=== PATIENT | female | born 2000 | race Caucasian/White ===

== ENCOUNTER 2024-06-07 12:24 | Emergency (ER) | payer BC, OTHER ==
[2024-06-07 12:36] VITALS: TEMP 98.8
--- NOTE | 2024-06-07 13:23 | ED ---
Chest Pain HPI - General Chief Complaint: Chest Pain Stated Complaint: Chest pain Time Seen by Provider: 06/07/24 13:23 Source: patient, family (mother), RN notes reviewed Mode of arrival: ambulatory Limitations: no limitations - History of Present Illness Initial Comments: 23 year old female presenting to the ER for evaluation of chest discomfort and a lcohol withdrawal. Patient reports for the past 4 to 5 years he has been drinking approximately half a pint a day. He admits to tremors and mild agitation with withdrawal. Denies known seizure from withdrawal. Patient does admit to hallucinations daily. Patient admits for the past 24 hours he has been experiencing a tight/squeezing sensation to the centralized chest area. Patient admits to shortness of breath and dizziness as well. Patient denies known cardiac history, history of blood clots, blood thinner use, or control use. Patient does smoke marijuana. Patient reports he would like help with alcohol use. Patient admits to a history of suicidal ideations with plan. Plan was to take pills and alcohol. Last thought was a couple of weeks ago per patient. No current thoughts. No homicidal ideations. - Related Data Previous Rx's Medication Instructions Recorded diazePAM [Valium] 5 mg PO BID #6 tab 06/07/24 Allergies Allergy/AdvReac Type Severity Reaction Status Date / Time pet dander Allergy Unknown Uncoded 06/07/24 12:26 Review of Systems ROS Statement: Those systems with pertinent positive or pertinent negative responses have been documented in the HPI. ROS Other: All systems not noted in ROS Statement are negative. EKG Findings - EKG Comments: EKG Findings:: EKG taken at 12: 44 showing a sinus rhythm with sinus arrhythmia. Inverted T waves in lead III. No ST segment changes. Ventricular rate 73, [place] interval 133, QRS duration 93, QT/QTc 375/400. Past Medical History Past Medical History: Asthma, GERD/Reflux Additional Past Medical History / Comment(s): vitiligo. stopped taking testosterone at 19 after using for one year History of Any Multi-Drug Resistant Organisms: None Reported Past Surgical History: Breast Surgery Additional Past Surgical History / Comment(s): colonoscopy. EGD. double mastectomy Past Psychological History: Anxiety, Depression Smoking Status: Former smoker Past Alcohol Use History: Abuse, Daily, Heavy Past Drug Use History: Marijuana General Exam Limitations: no limitations General appearance: alert, in no apparent distress Respiratory exam: Present: normal lung sounds bilaterally. Absent: respiratory distress, wheezes, rales, rhonchi, stridor Cardiovascular Exam: Present: regular rate, normal rhythm, normal heart sounds. Absent: systolic murmur, diastolic murmur, rubs, gallop, clicks GI/Abdominal exam: Present: soft, normal bowel sounds. Absent: distended, tenderness, guarding, rebound, rigid Neurological exam: Present: alert, oriented X3, CN II-XII intact Psychiatric exam: Present: flat affect Skin exam: Present: warm, dry, intact, normal color. Absent: rash Course Vital Signs 06/07/24 06/07/24 06/07/24 12:26 15:59 18:23 Temperature 98.8 F Pulse Rate 82 88 84 Respiratory 20 16 16 Rate Blood Pressure 123/91 126/79 124/76 O2 Sat by Pulse 93 L 96 99 Oximetry Chest Pain MDM - MDM Was pt. sent in by a medical professional or institution (, PA, COMPOSITION INSTRUCTOR, urgent care, hospital, or fpc...) When possible be specific @ -No Did you speak to anyone other than the patient for history (EMS, parent, family, police, friend...)? What history was obtained from this source @ -Patient's mother aiding in HPI and past medical history. Did you review nursing and triage notes (agree or disagree)? Why? @ -I reviewed and agree with nursing and triage notes Were old charts reviewed (outside hosp., previous admission, EMS record, old EKG, old radiological studies, urgent care reports/EKG's, fpc records)? Report findings @ -No old charts were reviewed Differential Diagnosis (chest pain, altered mental status, abdominal pain women, abdominal pain men, vaginal bleeding, weakness, fever, dyspnea, syncope, headache, dizziness, GI bleed, back pain, seizure, CVA, palpatations, mental health, musculoskeletal)? @ -Differential Chest Pain:Stable Angina, Unstable Angina, STEMI, NSTEMI Aortic Dissection, Pneumothorax, Musculoskeletal, Esophageal Spasm GERD, Cholecystitis, Pancreatitis, Zoster, this is not meant to be an all-inclusive list. EKG interpreted by me (3pts min.). @ -As above X-rays interpreted by me (1pt min.). @ -CXR negative for acute cardiopulmonary process. CT interpreted by me (1pt min.). @ -None done U/S interpreted by me (1pt. min.). @ -None done What testing was considered but not performed or refused? (CT, X-rays, U/S, labs)? Why? @ -None What meds were considered but not given or refused? Why? @ -None Did you discuss the management of the patient with other professionals (professionals i.e. , PA, COMPOSITION INSTRUCTOR, lab, RT, psych nurse, psychologist social, immigration lawyer, teacher, customs and immigration officer, pillowcase maker)? Give summary @ -Case was discussed with EPSMichelle, who advised on discharge with safety plan in place. Was smoking cessation discussed for >3mins.? @ -No Was critical care preformed (if so, how long)? @ -No Were there social determinants of health that impacted care today? How? (Homelessness, low income, unemployed, alcoholism, drug addiction, transportation, low edu. Level, literacy, decrease access to med. care, detention, rehab)? @ -Alcoholism Was there de-escalation of care discussed even if they declined (Discuss DNR or withdrawal of care, Hospice)? DNR status @ -No What co-morbidities impacted this encounter? (DM, HTN, Smoking, COPD, CAD, Cancer, CVA, ARF, Chemo, Hep., AIDS, mental health diagnosis, sleep apnea, morbid obesity)? @ -Alcoholism, mental health Was patient admitted / discharged? Hospital course, mention meds given and route, prescriptions, significant lab abnormalities, going to OR and other pertinent info. @ -Discharge. 23 year old female presenting to the ER with a chief complaint of chest discomfort. Patient also seeking help for alcohol use. History and physical exam completed. Vitals stable. Patient in no signs of acute distress nontoxic-appearing. Cardiac workup obtained and negative. Troponin undetectable. D-dimer 0.30. Serum alcohol less than 10. Chest x-ray negative. CIWA 6. Patient given IV fluids and thiamine. Patient is cleared for EPS evaluation. Case was discussed with Michelle YUSUF, placed on discharge with safety plan in place. Patient's mother, at bedside, states patient lives with her and can be closely monitored. Patient given resources for [facility] and is scheduled to follow-up with them tomorrow. Valium prescribed. Strict return parameters discussed. Patient discharged in stable condition with follow-up to PCP. Patient verbally expressed understanding and agreement with care plan. Case discussed with ED attending, Dr. Graham. Undiagnosed new problem with uncertain prognosis? @ -No Drug Therapy requiring intensive monitoring for toxicity (Heparin, Nitro, Insulin, Cardizem)? @ -No Were any procedures done? @ -No Diagnosis/symptom? @ -Atypical chest pain/alcohol abuse Acute, or Chronic, or Acute on Chronic? @ -Acute Uncomplicated (without systemic symptoms) or Complicated (systemic symptoms)? @ -Uncomplicated Side effects of treatment? @ -No Exacerbation, Progression, or Severe Exacerbation? @ -No Poses a threat to life or bodily function? How? (Chest pain, USA, DC, pneumonia, PE, COPD, DKA, ARF, appy, cholecystitis, CVA, Diverticulitis, Homicidal, Suicidal, threat to staff... and all critical care pts) @ -Low at this time. Alcohol withdrawal can lead to seizures. Suicidal ideations are life-threatening. Disposition Clinical Impression: Alcohol abuse, Atypical chest pain Disposition: HOME SELF-CARE Condition: Stable Additional Instructions: Follow-up with [facility] as scheduled with EPS. Return to the ER for any new or worsening concerns. Prescriptions: diazePAM [Valium] 5 mg PO BID #6 tab Is patient prescribed a controlled substance at d/c from ED?: No Referrals: Zackary Ta [Primary Care Provider] - 1-2 days Forms: Outpatient Counseling, Outpatient Therapy List Time of Disposition: 17:22
[2024-06-07] MEDS: SODIUM CHLORIDE 0.9% 1,000 ML IV STA (14:00)
--- NOTE | 2024-06-07 14:02 | XR ---
2 view chest HISTORY: Chest pain COMPARISON: None TECHNIQUE: PA and lateral views chest obtained. FINDINGS: The lungs are clear of consolidative, interstitial or masslike opacity. There is no pleural effusion, pleural thickening or pneumothorax. The heart, pulmonary vasculature, mediastinum and cris are within normal limits. The osseous structures and soft tissues of the thorax are intact. IMPRESSION: No significant abnormality. No acute cardiopulmonary disease. [facility], Workstation: [facility], 06/07/2024 2:00 PM
[2024-06-07 14:11] LABS: Basophils # (A) 0.1 k/uL (0-0.2); Basophils % (A) 1 %; Eosinophils # (A) 0.5 k/uL (0-0.7); Eosinophils % (A) 6 %; HCT 46.8 % (34.0-46.0); HGB 15.9 gm/dL (11.4-16.0); Lymphocytes # (A) 1.9 k/uL (1.0-4.8); Lymphocytes % (A) 22 %; MCH 30.8 pg (25.0-35.0); MCHC 33.9 g/dL (31.0-37.0); MCV 90.8 fL (80.0-100.0); Mean Platelet Volume 7.8; Monocytes # (A) 0.5 k/uL (0-1.0); Monocytes % (A) 6 %; Neutrophils # (A) 5.8 k/uL (1.3-7.7); Neutrophils % (A) 65 %; Platelet Count 294 k/uL (150-450); RBC 5.15 m/uL (3.80-5.40); RDW 12.3 % (11.5-15.5); WBC 8.9 k/uL (3.8-10.6)
[2024-06-07 14:22] LABS: ALT 38 U/L (4-34); AST 43 U/L (14-36); African American GFR (CKD) >90 (>60 ml/min/1.73 sqM); Alcohol <10 mg/dL; Alkaline Phosphatase 75 U/L (38-126); Anion Gap 8 mmol/L; Blood Urea Nitrogen 5 mg/dL (7-17); Calcium 9.6 mg/dL (8.4-10.2); Carbon Dioxide 21 mmol/L (22-30); Chloride 109 mmol/L (98-107); Glucose 97 mg/dL (74-99); Magnesium 1.8 mg/dL (1.6-2.3); Non-African American GFR(CKD) >90 (>60 ml/min/1.73 sqM); Sodium 138 mmol/L (137-145); Total Bilirubin 0.8 mg/dL (0.2-1.3); Total Protein 8.3 g/dL (6.3-8.2)
[2024-06-07 14:40] LABS: INR 0.9 (<1.2); Partial Thromboplastin Time 22.7 sec (22.0-30.0); Prothrombin Time 10.5 sec (10.0-12.5)
[2024-06-07] MEDS ORDERED: LORazepam 2 MG/ML INJ IV PRN ×3 (14:53)
[2024-06-07] MEDS: THIAMINE 100 MG TAB PO STA (15:34)
[2024-06-07 16:02] VITALS: RESP 16
[2024-06-07] MEDS: THIAMINE 100 MG/ML 2 ML VIAL IM STA (16:07)
[2024-06-07 18:24] VITALS: BP 124/76; PULSE 84
== END 2024-06-07 18:24 | disposition home or self-care (01) ==
LOC: EC 12:24
DX: F10.139 Alcohol abuse with withdrawal, unspecified (principal); R07.89 Other chest pain; Z87.891 Personal history of nicotine dependence; Z91.048 Other nonmedicinal substance allergy status; Y90.0 Blood alcohol level of less than 20 mg/100 ml
CPT/HCPCS: 82075; 36415; 93005; 85379; 80053; 83735; 84484; 85025; 85610; 85730; 71046; 99285; 96360; 96361; G0480; 80320; 96375